=== PATIENT | female | born 1980 | race Caucasian/White ===

== ENCOUNTER 2019-01-14 17:35 | Emergency (ER) | payer MEDICAID, SELFPAY ==
[2019-01-14 17:36] VITALS: BP 151/88; PULSE 87; RESP 15; TEMP 36.6; O2SAT 99; BMI 37.4
[2019-01-14 17:44] VITALS: O2SAT 100
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
[2019-01-14] MEDS: oxyCODONE 5 MG Tablet PO (18:10)
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
== END 2019-01-14 20:06 | disposition home or self-care (01) ==
PROVIDERS: Emergency Provider Emergency Medicine; Family Provider Student in an Organized Health Care Education/Training Program; PCP Student in an Organized Health Care Education/Training Program
DX: M25.551 Pain in right hip (principal); M25.561 Pain in right knee; V89.2XXA Person injured in unspecified motor-vehicle accident, traffic, initial encounter; Y93.9 Activity, unspecified; Y92.9 Unspecified place or not applicable
CPT/HCPCS: 73502; 73560; 99285; J7030

== ENCOUNTER 2021-12-09 17:08 | Outpatient (REF) | payer SELFPAY | END 2021-12-09 23:59 | disposition home or self-care (01) | LOC: EDREF 17:08 | DX: Z04.41 Encounter for examination and observation following alleged adult rape (principal) ==